=== PATIENT | female | born 1960 | race Caucasian/White ===

== ENCOUNTER 2020-05-20 17:25 | Emergency (ER) | payer MEDICARE, OTHER ==
[~2020-05-20 17:25] MED LIST: ABILIFY 5 MG TAB5 MG PO; ASPIRIN 325MG325 MG PO; BENTYL 20MG TAB20 MG PO; CELEBREX 200MG200 MG PO; CLARITIN10 MG PO; CORTIZONE-1057 GM TP; DEXILANT60 MG PO; ELIMITE 5% CREA60 GM TOP; ESTRACE1 MG PO; LIORESAL TAB 1010 MG PO; MACROBID 100 M100 MG PO; MEDROL4 MG PO; MIRALAX17 GM PO; OMNICEF 300 MG300 MG PO; PREDNISONE20 MG PO; PREMARIN PV; PROTONIX40 MG PO; PROVENTIL HFA6.7 GM INH; SEROQUEL100 MG PO; VIBRAMYCIN100 MG PO; ZOFRAN4 MG PO; ZOLOFT100 MG PO
[2020-05-20] MEDS ORDERED: PREDNISONE20 MG PO (19:39)
[2020-05-20] MEDS ORDERED: BENADRYL25 MG PO (19:39)
== END 2020-05-20 19:46 | disposition home or self-care (01) ==
LOC: ER1 17:25
DX: R21 Rash and other nonspecific skin eruption (principal); R09.89 Other specified symptoms and signs involving the circulatory and respiratory systems; F17.200 Nicotine dependence, unspecified, uncomplicated; Z88.5 Allergy status to narcotic agent
CPT/HCPCS: 96372; 99282; J1200; J2930

== ENCOUNTER 2020-11-18 09:59 | Emergency (ER) | payer MEDICARE, OTHER ==
[~2020-11-18 09:59] MED LIST changes: +BENADRYL25 MG PO
[2020-11-18 11:48] LABS: HEMOGLOBIN 14.9 gm/dl (12.3-15.3); RED BLOOD COUNT 4.71 M/UL (4.00-5.10); WHITE BLOOD COUNT 7.9 K/UL (4.5-11.0)
[2020-11-18 12:17] LABS: BUN/CREATININE RATIO 19 (0-10)
== END 2020-11-18 14:45 | disposition left against medical advice (07) ==
LOC: ER1 09:59
DX: R10.9 Unspecified abdominal pain (principal); M54.9 Dorsalgia, unspecified
CPT/HCPCS: 71046; 80053; 80307; 81001; 83690; 85025; 94664; 96374; 96375; 99284; J1885; J2405

== ENCOUNTER 2020-11-18 16:12 | Emergency (ER) | payer MEDICARE, OTHER | END 2020-11-18 17:25 | disposition left against medical advice (07) | LOC: ER1 16:12 | DX: R11.2 Nausea with vomiting, unspecified (principal); R19.7 Diarrhea, unspecified | CPT/HCPCS: 99283 ==

== ENCOUNTER 2020-11-28 13:15 | Emergency (ER) | payer MEDICARE, OTHER ==
[2020-11-28 15:21] LABS: HEMOGLOBIN 15.1 gm/dl (12.3-15.3); RED BLOOD COUNT 4.76 M/UL (4.00-5.10); WHITE BLOOD COUNT 7.8 K/UL (4.5-11.0)
[2020-11-28 15:39] LABS: BUN/CREATININE RATIO 15 (0-10)
[2020-11-28] MEDS ORDERED: PROAIR DIGIHAL90 MCG INH (17:41)
[2020-11-28] MEDS ORDERED: IBUPROFEN800 MG PO (17:41)
[2020-11-28] MEDS ORDERED: ZOFRAN ODT 4 MG4 MG PO (17:41)
== END 2020-11-28 17:45 | disposition home or self-care (01) ==
LOC: ER1 13:15
PROVIDERS: Emergency Medicine
DX: J06.9 Acute upper respiratory infection, unspecified (principal); Z20.822 Contact with and (suspected) exposure to COVID-19
CPT/HCPCS: 0240U; 71045; 80053; 85025; 99283

== ENCOUNTER 2020-11-29 14:34 | Emergency (ER) | payer MEDICARE, OTHER ==
[~2020-11-29 14:34] MED LIST changes: +IBUPROFEN800 MG PO; +PROAIR DIGIHAL90 MCG INH; +ZOFRAN ODT 4 MG4 MG PO
[2020-11-29 19:24] LABS: HEMOGLOBIN 15.5 gm/dl (12.3-15.3); RED BLOOD COUNT 4.86 M/UL (4.00-5.10); WHITE BLOOD COUNT 8.2 K/UL (4.5-11.0)
[2020-11-29 19:42] LABS: BUN/CREATININE RATIO 19 (0-10)
== END 2020-11-29 21:30 | disposition home or self-care (01) ==
LOC: ER1 14:34
PROVIDERS: Preventive Medicine Occupational Medicine
DX: F32.9 Major depressive disorder, single episode, unspecified (principal); Z20.822 Contact with and (suspected) exposure to COVID-19
CPT/HCPCS: 0240U; 80053; 85025; 99284

== ENCOUNTER 2021-04-05 15:51 | Emergency (ER) | payer MEDICARE, OTHER ==
[2021-04-05] MEDS ORDERED: FLONASE 0.05% N16 GM (18:03)
[2021-04-05] MEDS ORDERED: CATAPRES 0.1MG0.1 MG PO (18:03)
[2021-04-05] MEDS ORDERED: ASPIRIN CHEWABL81 MG PO (18:03)
[2021-04-05] MEDS ORDERED: ZYRTEC10 M3 PO (18:03)
[2021-04-05] MEDS ORDERED: LIORESAL TAB 1010 MG PO (18:03)
== END 2021-04-05 18:12 | disposition home or self-care (01) ==
LOC: ER1 15:51
DX: U07.1 COVID-19 (principal); Z23 Encounter for immunization; I10 Essential (primary) hypertension
CPT/HCPCS: 0240U; 71045; 99283; M0243

== ENCOUNTER 2021-05-19 09:10 | Emergency (ER) | payer MEDICARE, OTHER ==
[~2021-05-19 09:10] MED LIST changes: +ASPIRIN CHEWABL81 MG PO; +CATAPRES 0.1MG0.1 MG PO; +FLONASE 0.05% N16 GM; +ZYRTEC10 M3 PO
[2021-05-19 10:11] LABS: HEMOGLOBIN 12.9 gm/dl (12.3-15.3); RED BLOOD COUNT 4.25 M/UL (4.00-5.10); WHITE BLOOD COUNT 7.8 K/UL (4.5-11.0)
[2021-05-19 10:31] LABS: BUN/CREATININE RATIO 11 (0-10)
[2021-05-19] MEDS ORDERED: IBU800 MG PO (11:11)
[2021-05-19] MEDS ORDERED: ZOFRAN ODT 4 MG4 MG SL (11:11)
== END 2021-05-19 16:23 | disposition home or self-care (01) ==
LOC: ER1 09:10
PROVIDERS: Emergency Medicine
DX: U07.1 COVID-19 (principal)
CPT/HCPCS: 80053; 83690; 85025; 96374; 96375; 99283; J1885; J2405; J7030

== ENCOUNTER 2021-05-23 13:52 | Emergency (ER) | payer MEDICARE, OTHER ==
[~2021-05-23 13:52] MED LIST changes: +IBU800 MG PO; +ZOFRAN ODT 4 MG4 MG SL
[2021-05-23 15:02] LABS: HEMOGLOBIN 13.3 gm/dl (12.3-15.3); RED BLOOD COUNT 4.36 M/UL (4.00-5.10); WHITE BLOOD COUNT 8.8 K/UL (4.5-11.0)
[2021-05-23 15:41] LABS: BUN/CREATININE RATIO 16 (0-10)
== END 2021-05-23 16:55 | disposition home or self-care (01) ==
LOC: ER1 13:52
PROVIDERS: Nurse Practitioner
DX: Z59.00 Homelessness unspecified (principal); I10 Essential (primary) hypertension; F17.210 Nicotine dependence, cigarettes, uncomplicated; Z88.2 Allergy status to sulfonamides; Z20.822 Contact with and (suspected) exposure to COVID-19; Z88.5 Allergy status to narcotic agent; Z88.8 Allergy status to other drugs, medicaments and biological substances; Z79.899 Other long term (current) drug therapy
CPT/HCPCS: 0240U; 80048; 80307; 81001; 85025; 99283

== ENCOUNTER 2021-07-06 10:48 | Emergency (ER) | payer MEDICARE, OTHER ==
[2021-07-06] MEDS ORDERED: PROVENTIL HFA6.7 GM INH (11:38)
== END 2021-07-06 11:44 | disposition home or self-care (01) ==
LOC: ER1 10:48
DX: R05.9 Cough, unspecified (principal); Z20.822 Contact with and (suspected) exposure to COVID-19; J44.9 Chronic obstructive pulmonary disease, unspecified; I10 Essential (primary) hypertension; Z88.2 Allergy status to sulfonamides; F17.200 Nicotine dependence, unspecified, uncomplicated
CPT/HCPCS: 99283; U0003

== ENCOUNTER → 2021-07-28 | Outpatient (CLI) | payer MEDICARE, OTHER | LOC: KOH-I 10:41 | DX: M79.671 Pain in right foot (principal); M19.071 Primary osteoarthritis, right ankle and foot | CPT/HCPCS: 73630 ==

== ENCOUNTER 2021-10-07 17:13 | Emergency (ER) | payer MEDICARE, OTHER | END 2021-10-08 03:00 | disposition short-term general hospital (02) | LOC: ER1 17:13 | DX: F41.9 Anxiety disorder, unspecified (principal); D64.9 Anemia, unspecified; F17.200 Nicotine dependence, unspecified, uncomplicated; Z20.822 Contact with and (suspected) exposure to COVID-19; Z90.710 Acquired absence of both cervix and uterus; Z88.8 Allergy status to other drugs, medicaments and biological substances; Z88.2 Allergy status to sulfonamides | CPT/HCPCS: 99284; U0002 ==

== ENCOUNTER 2021-10-26 07:49 | Emergency (ER) | payer MEDICARE, OTHER ==
[2021-10-26 09:19] LABS: RED BLOOD COUNT 4.66 M/UL (4.00-5.10); WHITE BLOOD COUNT 16.8 K/UL (4.5-11.0)
[2021-10-26 09:34] LABS: HEMOGLOBIN 15.8 gm/dl (12.3-15.3)
[2021-10-26] MEDS ORDERED: ZOFRAN 4 MG TAB4 MG PO (13:05)
== END 2021-10-26 13:42 | disposition home or self-care (01) ==
LOC: ER1 07:49
PROVIDERS: Emergency Medicine
DX: F15.90 Other stimulant use, unspecified, uncomplicated (principal); R11.2 Nausea with vomiting, unspecified; J42 Unspecified chronic bronchitis; E86.0 Dehydration; I10 Essential (primary) hypertension
CPT/HCPCS: 71045; 80053; 81001; 83690; 84484; 85025; 93005; 99284